=== PATIENT | female | born 1975 | race Caucasian/White ===

== ENCOUNTER → 2021-09-03 | Outpatient (CLI) | payer OTHER ==
[~2021-09-03] MED LIST: GADOTERATE MEGLUMINE 10 MMOL/20 ML VIAL IVP ONE
== END | disposition home or self-care (01) ==
LOC: RADMN 08:50
PROVIDERS: ATTEND Nurse Practitioner
DX: L84 Corns and callosities (principal); M20.11 Hallux valgus (acquired), right foot; M20.41 Other hammer toe(s) (acquired), right foot; S93.529D Sprain of metatarsophalangeal joint of unspecified toe(s), subsequent encounter; M19.071 Primary osteoarthritis, right ankle and foot; M79.671 Pain in right foot; M79.89 Other specified soft tissue disorders; G57.61 Lesion of plantar nerve, right lower limb; X58.XXXD Exposure to other specified factors, subsequent encounter
CPT/HCPCS: 73720; A9575